=== PATIENT | female | born 1980 | race Caucasian/White ===

== ENCOUNTER 2020-08-05 22:35 | Emergency (ER) | payer OTHER, MEDICAID ==
[~2020-08-05] VITALS: Ht 165.1 cm; Wt 81.7 kg
[~2020-08-05 22:35] MED LIST: CLONAZEPAM; IBUPROFEN 800800 MG PO; NOHOMEMEDICATIONS; NORFLEX100 MG PO; SEROQUEL XR50 MG; ULTRAM 50MG TAB50 MG PO
[2020-08-06] MEDS ORDERED: PREDNISONE50 MG PO (00:27)
[2020-08-06 00:42] VITALS: BP 108/64
== END 2020-08-06 00:42 | disposition home or self-care (01) ==
LOC: M.ERS 22:35
DX: L25.9 Unspecified contact dermatitis, unspecified cause (principal); K50.90 Crohn's disease, unspecified, without complications; F17.210 Nicotine dependence, cigarettes, uncomplicated; Z88.8 Allergy status to other drugs, medicaments and biological substances